=== PATIENT | female | born 1960 | race Caucasian/White ===

== ENCOUNTER 2017-06-25 09:52 | Emergency (ER) | payer BC ==
[2017-06-25] MEDS ORDERED: ONDANSETRON HCL/PF 2 MG/ML VIAL IV ONE (10:11)
[2017-06-25] MEDS ORDERED: NORMAL SALINE 1,000 ML IV ONE (10:12)
[2017-06-25] MEDS ORDERED: KETOROLAC TROMETHAMINE 30 MG/ML VIAL IV ONE (10:12)
--- NOTE | 2017-06-25 10:31 | ERNOTE ---
Abdominal HPI - Narrative Date of Service: 06/25/17 - General Chief Complaint: Abdominal Pain Time Seen by Provider: 06/25/17 10:07 Source: patient Exam Limitations: no limitations - Immun/Allergies/Home Medications Immunizatons: IMMUNIZATION HX Immunizations Up to Date Yes History of Influenza Vaccine No Hx Pneumococcal Vaccination No Allergies/Adverse Reactions: Allergies Penicillins Allergy (Intermediate, Verified 06/25/17 10:03) Hives Home Medications: HOME MEDICATIONS Ondansetron [Zofran Odt] 4 mg PO Q6H PRN #20 tab 05/31/17 [Last Taken Unknown] Effexor 06/25/17 [Last Taken Unknown] Nexium 06/25/17 [Last Taken Unknown] Sucralfate [Carafate] 1 gm PO ACHS #1000 ml 06/25/17 [Last Taken Unknown] - History of Present Illness Narrative: Pt. comes in with c/o RUQ pain that she has had for a week. Pt. has been seen here for this and was diagnosed with GERD and was seen by her PCP who ordered an outpatient US of her gallbladder for 06/27/17 but states that she would like to have it today. Pt. states that she has some mild nausea and vomiting but denies any SOB, CP, diarrhea, fever, alleviating factors or aggravating factors. Pt. denies any prehosital treatment for her pain and even states that she has stopped her medication for GERD. Timing: intermittent Quality: aching Activities at Onset: none Modifying Factors - (Improves): Present: other - nothing Modifying Factors - (Worsens): Present: other - nothing Associated Symptoms: Present: nausea, loss of appetite. Absent: back pain, chest pain, diarrhea-gross blood, diarrhea-mucous, fever/chills, vomiting Prior Abdominal Problems: Present: similar symptoms Prior Treatment: Present: recently seen, treated by physician. Absent: recently hospitalized, currently on antibiotics Review of Systems - Review of Systems Constitutional: Present: malaise - aches all over. Absent: fever, chills, weakness, fatigue EYE: Present: no symptoms reported ENT: Present: no symptoms reported. Absent: nose pain, nose congestion, nasal drainage, sore throat Respiratory: Present: no symptoms reported. Absent: shortness of breath, cough , wheezing Cardiology: Present: no symptoms reported. Absent: chest pain, palpitations, edema Gastrointestinal/Abdominal: Present: nausea, abdominal pain - RUQ. Absent: vomiting Genitourinary: Present: no symptoms reported. Absent: frequency, decreased urinary output Musculoskeletal: Present: no symptoms reported. Absent: back pain, joint pain Skin: Present: no symptoms reported. Absent: rash, change in hair/nails Neurological: Present: no symptoms reported. Absent: headache, dizziness/light- headedness, numbness, tingling, tremors All Other Systems: All systems neg except as marked - Patient's Past Medical History Patient History - Medical: Anxiety, Depression, GERD, Migraines Patient History - Cancer: Thyroid Patient History - Surgical Procedures: Cancer Surgery Patient History - Other: None - Social History Abuse History: No History of abuse Psych History: Hx of Anxiety, Hx of Depression Smoking Status: Never smoker Have you smoked in the past 12 months: No Do you dip or chew tobacco: No Alcohol Use: none Drug Use: none - Immunizations Immunizations Up to Date: Yes Hx Pneumococcal Vaccination: No History of Influenza Vaccine: No Physical Exam - Physical Exam General Appearance: Present: wd/wn, alert, no apparent distress Head Exam: Present: normal inspection, no evidence of injury Eye Exam: Normal inspection: bilateral Ears, Nose, Throat: Present: normal ENT inspection, normal pharynx Neck: Present: normal inspection, nontender, supple, full range of motion. Absent: lymphadenopathy (R), lymphadenopathy (L) Respiratory: Present: no respiratory distress, normal breath sounds, no accessory muscle use, chest nontender, lungs clear Cardiovascular/Chest: Present: regular rate, rhythm, no murmur, normal peripheral pulses Gastrointestinal/Abdominal: Present: normal bowel sounds, nondistended, soft, no organomegaly, tenderness - RUQ LUQ. Absent: McBurney sign, Obturator sign, Amador sign, Psoas sign Back Exam: Present: normal inspection Extremity Exam: Present: normal inspection Neurological Exam: Present: alert, oriented, normal mood/affect, no motor/ sensory deficits Skin Exam: Present: normal color, warm/dry. Absent: pallor, skin rash ED Progress - Date and Time Seen: Date and Time: 06/25/17 10:30 Pt. states that she has fasted since 0030 this morning in anticipation of us possibly doing US and surgery. 06/25/17 11:11 As pt. has been fasting and has been having RUQ pain with no explanation will order gallbladder US as pt. is very insistent. 06/25/17 12:[address] Haro and he agrees with treatment plan to add in carafate and have pt. follow up with them for evaluation of possible EGD. - Results and Orders Patient's Lab Results:: I have reviewed the patient's lab results. - Vital Signs Patient's Vital Signs:: I have reviewed the patient's vital signs. Vital Signs: Vital Signs 06/25/17 09:59 Temperature 36.5 C Pulse Rate 51 L Respiratory 16 Rate Blood Pressure 140/84 O2 Sat by Pulse 99 Oximetry - CT/Ultrasound CT/Ultrasound Narrative: US negative for any acute cholecystitis - Progress/Reassessment Chief Complaint: Abdominal Pain Progress:: Unchanged Departure Clinical Impression: GERD (gastroesophageal reflux disease) Qualifiers: Esophagitis presence: with esophagitis Qualified Code(s): K21.0 - Gastro- esophageal reflux disease with esophagitis - Departure Disposition: Home self-care Condition: Good Instructions: Food Choices for Gastroesophageal Reflux Disease, Adult, Easy-to- Read, Indigestion Additional Instructions: Please follow up with Dr Khan office as scheduled and start carafate before each meal Referrals: Bo Klein MD [Primary Care Provider] - Prescriptions: Sucralfate [Carafate] 1 gm PO ACHS #1000 ml
[2017-06-25 10:33] LABS: Hematocrit 41.5 % (37.0-47.0); Hemoglobin 14.2 gm/dL (12.5-16.0); Mean Cell Volume 89.2 fl (78-100); Mean Corpuscular Hemoglobin 30.5 pg (27-31); Mean Corpuscular Hgb Conc 34.2 g/dl (32-36); Mean Platelet Volume 8.5 fl (6.0-9.5); Neutrophil # 2.9 K/mm3 (1.3-6.0); Neutrophil % 53.8 % (42-75.0); Platelet Count 363 K/mm3 (150-450); Red Blood Count 4.65 M/mm3 (4.2-5.4); Red Cell Distribution Width 12.1 % (11.5-14.0); White Blood Count 5.5 K/mm3 (4.0-10.5)
[2017-06-25 10:48] LABS: Anion Gap 9.5 mmol/L (6.8-13.8); BUN/Creatinine Ratio 13.6 (9.0-21.6); Bilirubin, Total 0.4 mg/dL (0.0-1.1); Ca. Corrected For Albumin 9.7 mg/dL (8.4-10.2); Carbon Dioxide 30.6 mmol/L (24-32.6); Potassium 4.1 mmol/L (3.4-4.6); Total Protein 7.7 gm/dL (6.2-8.2)
[2017-06-25] MEDS ORDERED: KETOROLAC TROMETHAMINE 30 MG/ML VIAL ONE (11:07)
[2017-06-25] MEDS ORDERED: ONDANSETRON HCL/PF 2 MG/ML VIAL ONE (11:07)
[2017-06-25 11:22] LABS: Urine Bilirubin Negative (NEGATIVE); Urine Blood Negative /ul (NEGATIVE); Urine Ketone 5 mg/dL (NEGATIVE); Urine Nitrite Negative (NEGATIVE); Urine Protein Negative (NEGATIVE); Urine Urobilinogen Normal (NORMAL)
[2017-06-25 11:28] LABS: Urine Appearance Clear; Urine Bacteria None Seen; Urine Color Yellow; Urine RBC None Seen /hpf (0-5); Urine WBC None Seen /hpf (0-5)
[2017-06-25] MEDS ORDERED: MAG HYDROX/ALUMINUM HYD/SIMETH 30 ML UDC PO ONE (12:16)
[2017-06-25] MEDS ORDERED: LIDOCAINE HCL 20 ML UDC PO ONE (12:16)
[2017-06-25] MEDS ORDERED: SUCRALFATE 1 G/10 ML UDC PO ONE (12:16)
[2017-06-25 13:13] VITALS: BP 138/67
== END 2017-06-25 13:05 | disposition home or self-care (01) ==
LOC: ER 09:52
DX: K21.0 Gastro-esophageal reflux disease with esophagitis (principal); Z85.850 Personal history of malignant neoplasm of thyroid
CPT/HCPCS: 36415; 76705; 80053; 81001; 82150; 83690; 85025; 96374; 99285; J2405

== ENCOUNTER 2017-06-26 10:43 | Day surgery (SDC) | payer BC ==
[2017-06-26] MEDS ORDERED: RINGER'S SOLUTION,LACTATED 1,000 ML IV PRN (10:55)
[2017-06-26 13:00] VITALS: BP 117/67
--- NOTE | 2017-06-26 13:55 | OR ---
Operative Report - Dictated Report Narrative: Date: 06/26/2017 Preop dx: GERD, Nausea, Vomiting, RUQ abdominal pain Postop dx: Duodenitis, Small hiatal hernia Procedure: EGD with biopsy Staff surgeon: Scott Garvey MD Anesthesia: MAC per [employer]ATOR EBL: minimal Specimens: Duodenum, CLOtest-antrum, Antrum for anatomic path, Description of procedure: After informed consent a bite block was inserted and IV sedation was administered per [employer]. A flexible video endoscope was inserted through the bite block, through the posterior pharynx and into the esophagus under direct vision. The scope was then advanced through the esophagus, stomach and into the third portion of the duodenum. The scope was slowly withdrawn. The duodenal bulb was inflamed with punctate hemorrhages and a cold forceps biopsy was taken of this finding. The scope was withdrawn into the stomach. There was no gastritis or ulcers noted. A cold forceps biopsy was performed of the antrum for CLOtest and for anatomic pathology. The body of the stomach was inspected and was normal. Retroflexion of the scope within the stomach revealed a small hiatal hernia. Endoscope was withdrawn into the distal esophagus. Other than a small hiatal hernia no other abnormalities were seen. The remainder of the esophagus was unremarkable. The patient tolerated the procedure well and was discharged from the endoscopy suite in stable condition. RECOMMENDATIONS: Continue acid suppression. Was increased to 40 mg Protonix PO daily x 30 days. Will add Carafate 1 gm PO QID x 30 days Was given a script for Zofran ODT 4 mg SL q 4 hr PRN # 30
== END 2017-06-26 10:44 | disposition home or self-care (01) ==
LOC: AMB 10:43
PROVIDERS: ATTEND Specialist
PROC: 0DB68ZX Excision of Stomach, Via Natural or Artificial Opening Endoscopic, Diagnostic (ICD-10-PCS; principal; 2017-06-26)
DX: K29.70 Gastritis, unspecified, without bleeding; K44.9 Diaphragmatic hernia without obstruction or gangrene; Z87.891 Personal history of nicotine dependence; Z68.27 Body mass index [BMI] 27.0-27.9, adult; K29.80 Duodenitis without bleeding
CPT/HCPCS: 87081; 88305; 88312; 88313